=== PATIENT | female | born 1950 | race Caucasian/White ===

== ENCOUNTER → 2018-11-11 07:31 | Outpatient (CLI) | payer OTHER, SELFPAY ==
[2018-11-11 07:52] LABS: Add Manual Diff / Slide Review NO; Basophils Absolute Auto 100 /uL (0-100); Basophils Percent Auto 1.1 % (0-2); Eosinophils Absolute Auto 100 /uL (0-450); Eosinophils Percent Auto 3.3 % (2-4); Hematocrit 38.2 % (36-46); Hemoglobin 12.9 g/dL (12.0-16.0); Lymphocytes Absolute Auto 1400 /uL (1100-4500); Lymphocytes Percent Auto 32.5 % (25-40); Mean Corpuscular HGB Conc 33.7 % (30-36); Mean Corpuscular Hemoglobin 30.7 PG (26-34); Mean Corpuscular Volume 90.9 fL (80-100); Monocytes Absolute Auto 600 /uL (0-900); Monocytes Percent Auto 12.9 % (3-14); Neutrophils Absolute Auto 2200 /uL (1500-7000); Neutrophils Percent Auto 50.2 % (50-75); Platelet Count 337 X10^3/uL (150-400); Red Blood Cell Count 4.21 X10^6/uL (4.0-5.2); Red Cell Distribution Width 14.2 % (11.6-14.8); White Blood Cell Count 4.4 X10^3/uL (4.5-11.0)
[2018-11-11 08:43] LABS: Alanine Aminotransferase 27 IU/L (9-52); Albumin 4.4 g/dL (3.5-5.0); Albumin Globulin Ratio 1.5 (1.0-2.8); Alkaline Phosphatase 68 U/L (38-126); Aspartate Aminotransferase 27 IU/L (14-36); BUN Creatinine Ratio 23.8 (6-22); Bilirubin Total 0.5 mg/dL (0.2-1.3); Blood Urea Nitrogen 19 mg/dL (7-17); Calcium 9.5 mg/dL (8.4-10.2); Carbon Dioxide 29 mmol/L (22-32); Chloride 104 mmol/L (98-107); Cholesterol 180 mg/dL (140-199); Estimated Glomerular Filt Rate > 60.0 mL/min (>60); Globulin 2.9 g/dL (1.7-4.1); Glucose 94 mg/dL (80-110); HDL Cholesterol 70 mg/dL (40-60); HEMOLYSIS < 15 (0-50); LDL Cholesterol Calculated 99 mg/dL (<100); Potassium 4.3 mmol/L (3.4-5.1); Sodium 140 mmol/L (137-145); Total Protein 7.3 g/dL (6.3-8.2); Triglycerides 54 mg/dL (35-150)
[2018-11-11 09:21] LABS: TSH w/ Reflex to FT4 1.93 uIU/mL (0.47-4.68)
== END ==
PROVIDERS: PCP Family Medicine; Visit Provider Family Medicine
DX: F32.9 Major depressive disorder, single episode, unspecified (principal); Z13.1 Encounter for screening for diabetes mellitus; Z13.220 Encounter for screening for lipoid disorders
CPT/HCPCS: 36415; 80053; 80061; 84443; 85025

== ENCOUNTER → 2018-11-12 14:58 | Outpatient (CLI) | payer OTHER, SELFPAY ==
--- NOTE | 2018-11-12 | DI.MG.S_ITS ---
BILATERAL DIGITAL SCREENING MAMMOGRAM 3D/2D WITH CAD: 11/12/2018 CLINICAL: Routine screening. Family history of breast cancer. Comparison is made to exams dated: 07/17/2007 mammogram and 06/03/2005 mammogram - [facility]. There are scattered fibroglandular elements in both breasts. Current study was also evaluated with a Computer Aided Detection (CAD) system. No significant masses, calcifications, or other findings are seen in either breast. There has been no significant interval change. IMPRESSION: NEGATIVE There is no mammographic evidence of malignancy. A 1 year screening mammogram is recommended. This exam was interpreted at Station ID: [id number]. NOTE: For mammograms, a report in lay terms will be sent to the patient. Approximately 15% of breast malignancies will not be visualized mammographically. In the management of a palpable breast mass, a negative mammogram must not discourage biopsy of a clinically suspicious lesion. Electronically Signed By: Anuja casillas/lilia:11/12/2018 16:30:08 letter sent: Normal Exam ACR BI-RADS Category 1: Negative [id number]
== END ==
PROVIDERS: PCP Family Medicine; Visit Provider Family Medicine
DX: Z12.31 Encounter for screening mammogram for malignant neoplasm of breast (principal); Z80.3 Family history of malignant neoplasm of breast
CPT/HCPCS: 77063; 77067

== ENCOUNTER → 2019-06-25 15:11 | Outpatient (CLI) | payer OTHER, SELFPAY ==
--- NOTE | 2019-06-25 15:14 | DI.RAD.S_ITS ---
PROCEDURE: XR HUMERUS RT 2V INDICATIONS: Clinical concern for fracture s/p FOOSH TECHNIQUE: 2 views of the humerus were acquired. COMPARISON: None. FINDINGS: Bones: There is a highly comminuted fracture involving the right humeral head and neck. There is intra-articular involvement seen. The proximal humeral shaft is impacted into the fracture fragments. The humeral head is slightly subluxed inferiorly in relation to the glenoid fossa. A well-corticated bone fragment can be seen adjacent to the olecranon, which has the appearance of a remote fracture, or an unfused developmental anomaly. No definite rib fracture or scapular fracture can be seen. No suspicious lytic or blastic lesions are seen. Soft tissues: No suspicious soft tissue calcifications. The visualized lung demonstrates an unremarkable appearance. IMPRESSION: Healing comminuted fracture of the right femoral head and neck, with impaction and intra-articular involvement. The main fracture fragments of the humeral head are subluxed inferiorly in relation to the glenoid fossa. Dictated by: Kip Henao M.D. on 06/25/2019 at 14:49 Approved by: Kip Henao M.D. on 06/25/2019 at 14:53
== END ==
PROVIDERS: Family Provider Family Medicine; PCP Family Medicine; Visit Provider Physician Assistant
DX: M79.621 Pain in right upper arm (principal); S42.291D Other displaced fracture of upper end of right humerus, subsequent encounter for fracture with routine healing; X58.XXXD Exposure to other specified factors, subsequent encounter
CPT/HCPCS: 73060

== ENCOUNTER → 2019-06-29 14:32 | Outpatient (CLI) | payer OTHER, SELFPAY ==
--- NOTE | 2019-06-29 | DI.CT.S_ITS ---
PROCEDURE: CT UE RT WO CON INDICATIONS: displaced comminuted fracture of shaft of humerus TECHNIQUE: Noncontrast 1-1.5 mm thick sections acquired from the acromioclavicular joint to the inferior scapula, with coronal and sagittal reformatting. COMPARISON: [facility], CR, XR HUMERUS RT 2V, 06/25/2019, 15:11. FINDINGS: Image quality: Excellent. Bones: Compared previous radiograph examination of right humerus, again noted is acute comminuted and impacted fracture of right humeral shaft and humeral head with superior migration of humeral shaft and up to 9 mm overlapping of fracture site. There is also anterior and medial displacement of proximal humeral shaft in relation to humeral head with inwardly displaced fractured fragments of the anterior proximal humeral shaft. Comminuted fractures also seen involving humeral head with superior lateral displacement of greater tuberosity fragment measures 5 mm in distance and nondisplaced lesser tuberosity fragment. No other fracture or dislocation is seen. Osteoarthritic changes involving acromioclavicular joint are seen. Visualized right ribs are grossly intact however evaluation is slightly degraded T2 respiratory motion. Soft tissues: There is a moderate amount of joint effusion with inferior subluxation of humeral head in relation to glenoid. No gross full-thickness rotator cuff tendon rupture is seen. No calcified loose body is seen in glenohumeral joint. Impression: 1. Acute comminuted, and impacted fracture of right proximal humeral shaft and humeral head with displacement of the fractured fragments as described in detail above. No other fracture or dislocation is seen. Mild shoulder joint osteoarthritis. 2. Moderate amount of joint effusion. No gross calcified intra-articular loose body. No gross full-thickness rotator cuff tendon rupture. Dictated by: Gustavo Wadsworth M.D. on 06/30/2019 at 8:57 Approved by: Gustavo Wadsworth M.D. on 06/30/2019 at 9:22
== END ==
PROVIDERS: PCP Family Medicine; Visit Provider Physician Assistant Medical
DX: S42.351A Displaced comminuted fracture of shaft of humerus, right arm, initial encounter for closed fracture (principal); S42.291A Other displaced fracture of upper end of right humerus, initial encounter for closed fracture; M25.411 Effusion, right shoulder; X58.XXXA Exposure to other specified factors, initial encounter
CPT/HCPCS: 73200

== ENCOUNTER → 2019-07-04 13:04 | Outpatient (CLI) | payer OTHER, SELFPAY ==
[2019-07-04 13:35] LABS: Add Manual Diff / Slide Review NO; Basophils Absolute Auto 100 /uL (0-100); Basophils Percent Auto 1.1 % (0-2); Eosinophils Absolute Auto 100 /uL (0-450); Hematocrit 31.5 % (36-46); Hemoglobin 11.1 g/dL (12.0-16.0); Lymphocytes Absolute Auto 900 /uL (1100-4500); Lymphocytes Percent Auto 12.9 % (25-40); Mean Corpuscular HGB Conc 35.2 % (30-36); Mean Corpuscular Hemoglobin 33.1 PG (26-34); Monocytes Absolute Auto 600 /uL (0-900); Monocytes Percent Auto 9.7 % (3-14); Neutrophils Absolute Auto 5000 /uL (1500-7000); Neutrophils Percent Auto 75.3 % (50-75); Platelet Count 390 X10^3/uL (150-400); Red Blood Cell Count 3.35 X10^6/uL (4.0-5.2); Red Cell Distribution Width 13.6 % (11.6-14.8); White Blood Cell Count 6.6 X10^3/uL (4.5-11.0)
[2019-07-04 13:57] LABS: BUN Creatinine Ratio 28.6 (6-22); Blood Urea Nitrogen 20 mg/dL (7-17); Calcium 9.2 mg/dL (8.4-10.2); Carbon Dioxide 29 mmol/L (22-32); Chloride 98 mmol/L (98-107); Estimated Glomerular Filt Rate > 60.0 mL/min (>60); Glucose 104 mg/dL (80-110); HEMOLYSIS < 15 (0-50); Sodium 135 mmol/L (137-145)
== END ==
PROVIDERS: PCP Family Medicine; Visit Provider Orthopaedic Surgery
DX: Z01.818 Encounter for other preprocedural examination (principal)
CPT/HCPCS: 36415; 80048; 85025; 93005

== ENCOUNTER 2019-07-06 12:00 | Observation (INO) | payer OTHER, SELFPAY ==
[2019-07-05 07:19] VITALS: BMI 24.9
[2019-07-06] VITALS (14 sets, daily range): BP systolic 134–173; BP diastolic 65–100; PULSE 73–87; RESP 12–20; TEMP 36.3–37; O2SAT 94–99; BMI 24.9
--- NOTE | 2019-07-06 | DI.RAD.S_ITS ---
PROCEDURE: XR SHOULDER RT MIN 2V INDICATIONS: ORIF RIGHT SHOULDER TECHNIQUE: 5 intraoperative fluoroscopic views of the shoulder were acquired. COMPARISON: None. FINDINGS: Surgical retractors are in place. There is hardware fixation of comminuted humeral head/neck fracture. IMPRESSION: Intraoperative fluoroscopy for ORIF right shoulder. Dictated by: Katherine Shoemaker M.D. on 07/06/2019 at 17:54 Approved by: Katherine Shoemaker M.D. on 07/06/2019 at 17:54
[2019-07-06] MEDS: LACTATED RINGERS 1,000 ML 42 ML IV ×2 (13:30→15:29)
--- NOTE | 2019-07-06 13:49 | PM.PREOP ---
Pre-operative Note Interval Note History & Physical reviewed/Exam performed by Physician: Yes Changes to H&P: No
[2019-07-06] MEDS: CEFAZOLIN 2 GM/100 ML FROZ.PIGGY IV ×2 (14:31→21:49)
--- NOTE | 2019-07-06 14:35 | SUR.PREOP ---
Nerve block by Dr. Zepeda, assisted by Ann-Marie Fall, RN. Care assumed at 1418. Pt relaxed/sedated, on continuous O2 at 2LNP and VS/lunchroom monitor. Eyes closed, responds readily to voice. Resp unlabored, 1527 Procedure completed, Assistant Superintendent For Curriculum here to take pt to the OR. VSS, pt tolerated procedure well.
--- NOTE | 2019-07-06 15:25 | SUR.OPER ---
Beach chair with Anna/Sal shoulder positioner. Lower body on padded OR bed. Head in foam padded head cradle, secured with straps. Non-operative arm secured <90 degrees abduction. Pillow under knees. Safety belt at thigh. Cloth tape over blanket over lower legs.
[2019-07-06] MEDS: LIDOCAINE 1% W/EPI 20 ML INJ (15:30)
--- NOTE | 2019-07-06 17:35 | PM.OP.1 ---
Operative Date/Time/Diagnoses Date of procedure: 07/06/19 Time of procedure: 15:00 Pre-op diagnosis: Comminuted 3 part proximal humerus fracture Post-op diagnosis: same Procedure & Clinicians Procedure: Open reduction internal fixation with strut graft Same procedure as scheduled: Yes Indications: Comminuted 3 part proximal humerus fracture Surgeon: Min Alfaro Frameman: Ronel Phelan Anesthesia Type: General and Peripheral nerve block Operative Notes Findings: Comminuted 3 part proximal humerus fracture with significant impaction of the shaft into the head. Greater tuberosity was in multiple pieces and significantly displaced. Lesser tuberosity was fractured but very minimally displaced. Closure Type: primary Specimen(s): none sent Applied: implant(s) (Arthrex proximal humerus plate) Estimated Blood Loss (mL): 50 Blood products transfused: none Procedure in detail: On date of service, patient was met in the holding area where her operative site was signed and witnessed by the OR staff. Surgeries once again discussed with patient any remaining questions or concerns she had were answered fully. Patient received her antibiotics preoperatively as well as a nerve block. Patient was taken back to the operating theater and placed on the operating table in a supine position. Great care was taken to ensure that all bony prominences were appropriately padded. Patient was placed into a beach chair position at about 30?. Head and neck were also appropriately positioned and secured. Time-out had previously been performed verifying patient's name, procedure, and operative site. Right arm was prepped and draped in the normal sterile fashion. A deltopectoral approach was performed. Ten blade was used to incise through skin and fascial tissue. Electrocautery used to achieve hemostasis. Two retractors were placed and continued sharp dissection was performed. Pickups and tenotomies were used to identify the cephalic vein which was then freed and retracted with the pectoralis. Deltoid was retracted medially giving us good visualization of the proximal humerus. Biceps tendon was identified and was dissected through the bicipital groove allowing us to identify the lesser tuberosity which was fractured but not really displaced. The greater tuberosity was fractured in multiple pieces with 1 of the pieces being rather large. Sutures were placed around the pieces of the greater tuberosity at the bone-tendon interface allowing us to be able to mobilize the tuberosity fragments. The shaft was impacted into the head this caused the head to be tilted inferior. But it was still aligned with the glenoid. The shaft was disimpacted from the head. Strut graft was placed into the proximal and of the shaft. This was used to help elevate the head back into an anatomic position and also helped position the shaft underneath the head where it belonged. This was provisionally fixated with K-wires holding the shaft the strut graft and the head all secured. C-arm was brought in to verify the reduction of the head onto the shaft. Once we were satisfied with this plate was placed and C-arm was used to verify plate positioning as well. The plate was initially secured distally. Sutures were passed through the greater tuberosity around into the lesser tuberosity in order to secure the lesser tuberosity as well as reduce the greater tuberosity back to where it belonged. Once the tuberosities were reduced proximal screws were placed securing the plate to the tuberosity as well as the humeral head. 2. FiberWire were then placed through the tuberosities again through the suture holes into the plate for additional fixation making sure the tuberosities were secured in position as well as to the plate. Final x-rays were obtained showing a well reduced humeral head also showing that none of the screws were close to being intra-articular. The wound was then copiously irrigated. It was closed in a layered fashion. The wound was cleaned, dried, and dressed. Patient was extubated and taken to the PACU in stable condition. Complications: none Post-operative Condition: stable Disposition: PACU Plan for aftercare: Sling just for comfort. No restrictions to range of motion. No lifting more than 1-2 lb for the next 6 weeks.
[2019-07-06] MEDS: LACTATED RINGERS 1,000 ML 125 ML IV (19:15)
[2019-07-06] MEDS: DOCUSATE 100 MG CAPSULE PO (21:49)
--- NOTE | 2019-07-07 00:07 | PC.NURSE ---
Final Assembly And Packing Supervisor Note: 0000: Awake, resting in bed. Vital signs stable. IV in place in lt AC. Pt states her pain level is 1/10. NPO at this time for possible surgery in the morning.
--- NOTE | 2019-07-07 01:40 | PC.NURSE ---
Electric Operator Note: 0000: Resting in bed with HOB elevated. Vital signs stable. 0100: IV in place in lt forearm with LR infusing at 125cc/hr. Sling in place to support rt arm and shoulder. Pt states she still has numbness to rt hand but is able to move fingers, and states the feeling is getting more normal.
[2019-07-07] MEDS: LACTATED RINGERS 1,000 ML 125 ML IV (04:01)
[2019-07-07 06:30] VITALS: BP 144/89; PULSE 69; RESP 17; TEMP 36.9; O2SAT 99
[2019-07-07] MEDS: CEFAZOLIN 2 GM/100 ML FROZ.PIGGY IV (06:42)
[2019-07-07 07:23] LABS: Hemoglobin 10.1 g/dL (12.0-16.0); Mean Corpuscular HGB Conc 34.9 % (30-36); Mean Corpuscular Hemoglobin 32.7 PG (26-34); Mean Corpuscular Volume 93.9 fL (80-100); Platelet Count 364 X10^3/uL (150-400); Red Blood Cell Count 3.09 X10^6/uL (4.0-5.2); Red Cell Distribution Width 13.8 % (11.6-14.8); White Blood Cell Count 8.7 X10^3/uL (4.5-11.0)
[2019-07-07 08:00] VITALS: BP 161/91; PULSE 66; RESP 13; TEMP 37.4; O2SAT 99
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
--- NOTE | 2019-07-07 09:00 | CM.IDA ---
Discharge Planning/Care Management CM Discharge Assessment Start: 07/07/19 08:50 Freq: Status: Active Protocol: Document 07/07/19 08:50 WALT (Rec: 07/07/19 09:00 WALT [id number]) Discharge Planning Assessment Assigned Textile Bag Sewer PAT Sherman DPOA/Assigned Designee Name Veronica Reyna, friend Contact Information [phone] Advance Directives? Yes: POLST History Provided By Medical Record Prior Living Arrangements House Household Members none Type of transporation used prior to Drives own vehicle admit Independent with ADL's Yes Is patient alert and oriented? Yes Barriers to Discharge No Comment Pending progress with therapy team and further assessment of DC needs Discharge Plan Home Transportation Arrangement Friends/family Referrals Initiated None needed Additional Comment Pending work w/therapy team and further assessment of needs
[2019-07-07] MEDS: CALCIUM CARB/VIT D3 500/200 TABLET 1 EACH PO (09:01)
[2019-07-07] MEDS: CITALOPRAM 20 MG TABLET PO (09:01)
[2019-07-07] MEDS: FERROUS SULFATE 325 MG TABLET PO (09:02)
[2019-07-07] MEDS: DOCUSATE 100 MG CAPSULE PO (09:02)
--- NOTE | 2019-07-07 10:13 | PC.NURSE ---
Day shift: Pt left unit via WC with [employer] BUSINESS OBJECTS CONSULTANT. Friend will drive Pt home. Paperwork is signed and all questions answered. Pt has all personal belongings. Pt has MD kay. Dressing CDI and sling worn for comfort.
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
--- NOTE | 2019-07-07 10:51 | PM.DS.1 ---
History of Present Illness History of Present Illness Date Patient Seen: 07/07/19 Chief complaint: [id number] Narrative: Please see HPI previously recorded in the chart. Discharge Providers Provider Date of admission: 07/06/19 12:00 Discharge Date: 07/07/19 Primary care physician: Devi Everett DO Consults: 07/06/19 17:32 Consult to Discharge Planning Routine Comment: Consult to Physical Therapy Evaluate & Treat Comment: Physician Instructions: Evaluate and Treat Consult to Respiratory Therapy Evaluate & Treat Comment: Physician Instructions: Evaluate and treat 07/07/19 07:42 Consult to Occupational Therapy Evaluate & Treat Comment: Physician Instructions: Evaluate and treat Discharge provider: Ronel Phelan PA-C Summary Hospital Course Discharge Diagnosis: Patient is a 68 year old female who sustained a comminuted 3 part proximal humerus fracture after a slip and fall injury approximately one week ago. After discussion of risks vs benefits an informed consent was obtained for a right proximal humerus open reduction and internal fixation. She was taken to the operating room where she underwent ORIF with Dr. Alfaro which she tolerated well without complications. She was transferred to the acute care floor where she progressed well post operatively. Post op day 1 her pain was well controlled. She worked with PT/OT and mobilized well. She was discharged with sling just for comfort. No restrictions to range of motion. No lifting more than 1-2 lb for the next 6 weeks. She was discharged with supply of Oxycodone for pain. Medically stable for discharge. Status at Discharge Cognitive/behavioral status at discharge: oriented Functional status at discharge: independent ambulation Overall status at discharge: patient is progressing back to baseline Exam Vital Signs (past 8 hours): - 07/07/19 06:30 07/07/19 08:00 Temperature 98.5 F 99.3 F Pulse Rate 69 66 Respiratory Rate 17 13 Blood Pressure 144/89 H 161/91 H Pulse Oximetry 99 99 Fraction of Inspired Oxygen 21 Oxygen Delivery Method Room Air Oxygen Flow Rate 0 Narrative Exam Narrative: Pleasant 68 year old female resting comfortably in bed. Alert and oriented in no acute distress. RUE in sling. Aquacel dressing in place over right anterior shoulder is CDI except one small area of shadow drainage. Full ROM of the fingers and wrist. Sensation intact to light touch. 2+ radial pulse with brisk capillary refill. Machine Shop Apprentice strength equal. Objective Labs Result Diagrams: 07/07/19 06:36 Labs: Laboratory Results - last 24 hr 07/07/19 06:36 WBC 8.7 RBC 3.09 L Hgb 10.1 L Hct 29.0 L MCV 93.9 MCH 32.7 MCHC 34.9 RDW 13.8 Plt Count 364 Discharge Plan Discharge Plan Patient Disposition: Home Discharge orders & Medications Prescriptions: New acetaminophen 325 mg Tablet 975 mg PO TID PRN (Reason: Headache) Qty: 40 RF: 0 docusate sodium [DOK] 100 mg Capsule 100 mg PO BID Qty: 40 RF: 0 oxycodone 5 mg Tablet 5 mg PO Q4-6H PRN (Reason: Pain, Moderate (4-6)) Qty: 40 RF: 0 Continued oxycodone-acetaminophen [Percocet] 5-325 mg tablet 1 tab PO Q4-6H PRN (Reason: pain) Qty: 30 RF: 0 calcium carbonate-vitamin D3 [Oyster Shell Calcium-Vit D3] 1,250 MG/200 IU tablet 500 mg PO QDAY Qty: 0 RF: 0 citalopram 20 mg Tablet 20 mg PO DAILY RF: 0 ferrous sulfate [Iron (ferrous sulfate)] 325 mg (65 mg iron) Tablet 325 mg PO DAILY RF: 0 Follow up/Referrals: Min Alfaro MD [Physician] - Devi Everett DO [Primary Care Provider] - Diet/Activity/Treatments Diet: Diet as Tolerated Activity: Sling for comfort. No restrictions to ROM. Restrict lifting to 1-2lbs for the first 6 weeks. Cold/Heat Therapy: Ice packs as needed. Skin/Wound/Dressing Care Report to your healthcare provider any signs of infection, such as:: chills, fever, night sweats, unusual drainage and unusual redness Dressing: Dressing is to remain in place. If this becomes saturated please call the office. Visit Report/Discharge Packet Instructions: How to Prevent Falls, DI for Open Reduction Internal Fixation Surgery, Stool Softeners, Acetaminophen, Oxycodone Stand Alone Forms: Surgery Discharge Discharge Data Primary Care Provider: Devi Everett Attending Provider: Min Alfaro Admit Date/Time: 07/06/19 12:00 Discharges patient from system. Discharge Date/Time: 07/07/19 10:15
== END 2019-07-07 10:15 | disposition home or self-care (01) ==
PROVIDERS: Admitting Provider Orthopaedic Surgery; PCP Family Medicine; Visit Provider Orthopaedic Surgery
PROC: (CPT 23615; principal; 2019-07-06 14:00)
DX: S42.291A Other displaced fracture of upper end of right humerus, initial encounter for closed fracture (principal); W19.XXXA Unspecified fall, initial encounter; Y93.01 Activity, walking, marching and hiking; F17.210 Nicotine dependence, cigarettes, uncomplicated
CPT/HCPCS: 23615; 36415; 64450; 73030; 76000; 80048; 85025; 85027; 93005; 93010; 94762; 97161; 97165; 97535; G0378; G0379; J0690; J2250; J2704; J3010

== ENCOUNTER → 2022-06-13 11:11 | Outpatient (ROUT) | payer MEDICARE, OTHER, SELFPAY ==
[2019-07-06 18:22] VITALS: BMI 24.9
[2022-06-16 06:42] LABS: Fecal Immunochemical Test Negative (Negative)
== END ==
PROVIDERS: PCP Family Medicine; Visit Provider Family Medicine
DX: Z12.11 Encounter for screening for malignant neoplasm of colon (principal)
CPT/HCPCS: 82274

== ENCOUNTER → 2022-12-03 18:15 | Outpatient (ROUT) | payer MEDICARE, OTHER, SELFPAY ==
[2019-07-06 18:22] VITALS: BMI 24.9
== END ==
PROVIDERS: PCP Family Medicine; Visit Provider Dermatology
DX: L08.9 Local infection of the skin and subcutaneous tissue, unspecified (principal)
CPT/HCPCS: 87070; 87075; 87077; 87186; 87205

== ENCOUNTER → 2023-08-15 09:13 | Outpatient (CLI) | payer MEDICARE, OTHER, SELFPAY ==
[2019-07-06 18:22] VITALS: BMI 24.9
--- NOTE | 2023-08-15 | DI.MRI.S_ITS ---
PROCEDURE: MR BRAIN (IAC) WWO CON INDICATIONS: asymmetrical hearing loss TECHNIQUE: Noncontrast sagittal T1 spin echo, axial FLAIR, axial gradient echo, axial diffusion and ADC through the brain. Axial thin-slice 3D CISS, coronal TruFISP, axial T1 spin echo with fat saturation through the internal auditory canals. After the administration of contrast, thin slice axial and coronal T1 spin echo with fat saturation through the internal auditory canals, and axial and coronal and sagittal T1 spin echo with fat saturation through the brain. COMPARISON: [facility], MR, BRAIN (IAC) W AND WO CONTRAST, 10/13/2011, 7:22. FINDINGS: Image quality: Excellent. Cerebellopontine angles: No cerebellopontine angle masses. Inner ear structures appear normally formed. No suspicious enhancement in the internal auditory canal or along the course of the 7th cranial nerve. CSF spaces: Ventricles are normal in size and shape. No extra-axial fluid collections. Basal cisterns are patent. Brain: No intracranial masses or hemorrhage. [place]/white matter interface is normal. Brainstem appears normal. Diffusion-weighted sequence is unremarkable without evidence of acute infarct. Normal intravascular flow voids are present. Age-appropriate atrophy and white matter chronic ischemic change present. Skull and face: Calvarial marrow signal is normal. Orbits appear normal. Sinuses: Sinuses and mastoids are clear. IMPRESSION: Age-appropriate atrophy and white matter chronic ischemic change without acute infarct, hemorrhage or mass lesion. Unremarkable bilateral internal auditory canals without acoustic schwannoma. Approved by: Kang Christiansen M.D. on 08/17/2023 at 13:11
== END ==
PROVIDERS: PCP Family Medicine; Referring Provider Otolaryngology; Visit Provider Otolaryngology
DX: H91.8X3 Other specified hearing loss, bilateral (principal)
CPT/HCPCS: 70553; A9579

== ENCOUNTER → 2024-03-09 07:27 | Outpatient (CLI) | payer MEDICARE, OTHER, SELFPAY ==
[2019-07-06 18:22] VITALS: BMI 24.9
[2024-03-09 08:44] LABS: Add Manual Diff / Slide Review NO; Basophils Absolute Auto 0 /uL (0-100); Basophils Percent Auto 1.3 % (0-2); Eosinophils Absolute Auto 100 /uL (0-450); Eosinophils Percent Auto 2.3 % (2-4); Hematocrit 38.3 % (36-46); Hemoglobin 12.9 g/dL (12.0-16.0); Lymphocytes Absolute Auto 1200 /uL (1100-4500); Lymphocytes Percent Auto 30.2 % (25-40); Mean Corpuscular HGB Conc 33.5 % (30-36); Mean Corpuscular Volume 92.5 fL (80-100); Monocytes Absolute Auto 500 /uL (0-900); Monocytes Percent Auto 11.9 % (3-14); Neutrophils Absolute Auto 2100 /uL (1500-7000); Neutrophils Percent Auto 54.3 % (50-75); Platelet Count 260 X10^3/uL (150-400); Red Blood Cell Count 4.15 X10^6/uL (4.0-5.2); Red Cell Distribution Width 13.9 % (11.6-14.8); White Blood Cell Count 3.8 X10^3/uL (4.5-11.0)
[2024-03-09 09:11] LABS: Alanine Aminotransferase 18 IU/L (<35); Albumin 4.1 g/dL (3.5-5.0); Albumin Globulin Ratio 1.6 (1.0-2.8); Alkaline Phosphatase 87 U/L (38-126); Aspartate Aminotransferase 31 IU/L (14-36); Bilirubin Total 0.5 mg/dL (0.2-1.3); Blood Urea Nitrogen 19 mg/dL (7-17); Calcium 8.9 mg/dL (8.4-10.2); Carbon Dioxide 27 mmol/L (22-32); Chloride 106 mmol/L (98-107); Cholesterol 180 mg/dL (140-199); Estimated Glomerular Filt Rate > 60 mL/min (>60); Globulin 2.6 g/dL (1.7-4.1); Glucose 104 mg/dL (80-110); HEMOLYSIS < 15 (0-50); Potassium 4.5 mmol/L (3.4-5.1); Sodium 138 mmol/L (137-145); Total Protein 6.7 g/dL (6.3-8.2); Triglycerides 52 mg/dL (35-150)
[2024-03-09 09:23] LABS: HDL Cholesterol 116 mg/dL (40-60); LDL Cholesterol Calculated 54 mg/dL (<100)
[2024-03-09 09:39] LABS: TSH w/ Reflex to FT4 1.23 uIU/mL (0.47-4.68)
== END ==
PROVIDERS: PCP Family Medicine; Referring Provider Family Medicine; Visit Provider Family Medicine
DX: E78.5 Hyperlipidemia, unspecified (principal); S42.209A Unspecified fracture of upper end of unspecified humerus, initial encounter for closed fracture; D64.9 Anemia, unspecified
CPT/HCPCS: 36415; 80053; 80061; 84443; 85025

== ENCOUNTER → 2024-03-25 08:38 | Outpatient (CLI) | payer MEDICARE, OTHER, SELFPAY ==
[2019-07-06 18:22] VITALS: BMI 24.9
--- NOTE | 2024-03-25 08:41 | DI.MG.S_ITS ---
BILATERAL DIGITAL SCREENING MAMMOGRAM 3D/2D WITH CAD: 03/25/2024 CLINICAL: Routine screening. Family history of breast cancer. Comparison is made to exams dated: 11/12/2018 mammogram and 07/17/2007 mammogram - [facility]. There are scattered areas of fibroglandular density in both breasts (category b / 25%-50% glandular tissue). Current study was also evaluated with a Computer Aided Detection (CAD) system. No significant masses, calcifications, or other findings are seen in either breast. There has been no significant interval change. IMPRESSION: NEGATIVE There is no mammographic evidence of malignancy. A 1 year screening mammogram is recommended. Based on the Tyrer Cuzick model (a risk assessment model) the patient's lifetime risk is 13.6% and her 10 year risk is 11.2%. According to the ACR, ACS, and NCCN guidelines, an annual breast MRI exam along with mammogram is recommended if the patient's lifetime risk is 20% or greater. This exam was interpreted at Station ID: [id number]. NOTE: For mammograms, a report in lay terms will be sent to the patient. Approximately 15% of breast malignancies will not be visualized mammographically. In the management of a palpable breast mass, a negative mammogram must not discourage biopsy of a clinically suspicious lesion. Electronically Signed By: Ricardo glynn/lilia:03/25/2024 14:22:27 letter sent: Normal Exam ACR BI-RADS Category 1: Negative [id number]
== END ==
PROVIDERS: PCP Family Medicine; Referring Provider Family Medicine; Visit Provider Family Medicine
DX: Z12.31 Encounter for screening mammogram for malignant neoplasm of breast (principal); Z80.3 Family history of malignant neoplasm of breast; R92.323 Mammographic fibroglandular density, bilateral breasts
CPT/HCPCS: 77063; 77067

== ENCOUNTER → 2024-03-29 09:38 | Outpatient (CLI) | payer MEDICARE, OTHER, SELFPAY ==
[2019-07-06 18:22] VITALS: BMI 24.9
[2024-03-30 09:16] LABS: Fecal Immunochemical Test Negative (Negative)
== END ==
PROVIDERS: PCP Family Medicine; Referring Provider Family Medicine; Visit Provider Family Medicine
DX: Z12.11 Encounter for screening for malignant neoplasm of colon (principal)
CPT/HCPCS: 82274

== ENCOUNTER → 2024-08-23 07:52 | Outpatient (CLI) | payer MEDICARE, OTHER, SELFPAY ==
[2019-07-06 18:22] VITALS: BMI 24.9
== END ==
LOC: LAB 07:53
PROVIDERS: PCP Family Medicine; Referring Provider Family Medicine; Visit Provider Family Medicine
DX: D64.9 Anemia, unspecified (principal); D59.11 Warm autoimmune hemolytic anemia
CPT/HCPCS: 36415; 86850; 86860; 86870; 86880; 86900; 86901; 86905; 86906